=== PATIENT | male | born 1950 | race Caucasian/White ===

== ENCOUNTER 2020-11-23 09:45 | Emergency (ER) | payer MEDICARE, MEDICAID, SELFPAY ==
[2020-11-23] VITALS (9 sets, daily range): BP systolic 75–110; BP diastolic 53–80; PULSE 71–108; RESP 16–20; TEMP 36.5–36.8; O2SAT 95–99; BMI 15.7
--- NOTE | ~2020-11-23 | CT_ITS ---
EXAMINATION: HEAD AND CERVICAL SPINE CT WITHOUT CONTRAST CLINICAL INFORMATION: Fall COMPARISON: Previous head CT November 2012 TECHNIQUE: Axial images through the head and cervical spine without contrast. Sagittal and coronal reconstructions on the technologist workstation were performed. Patient dose 700+2 5 0 mg/cm. FINDINGS: Head CT: There is no evidence of an extra-axial collection. There is no evidence of intra-axial or extra-axial hemorrhage. The ventricles and extra-axial CSF spaces are prominent suggestive of generalized atrophy. There is an old right basal ganglia lacunar infarct. There is nonspecific periventricular white matter disease. No mass, mass effect or acute infarct is seen. Bony structures are unremarkable. Cervical spine CT: There is head tilt to the right. There is mild 2 to 3 mm anterior subluxation of C6 with respect to C5 C5 and C7. This may be related to facet arthritis. No fracture or dislocation is seen. There is a severe multilevel degenerative spondylosis from C3-C4 to T1-T2. There is degenerative disc disease at C7-T1 and T1-T2. There is bilateral multilevel facet arthritis. There are degenerative changes at the C1 dens articulation. Prevertebral soft tissues are normal. CT/CT cervical spine wo con IMPRESSION: Head CT: No acute findings. Generalized atrophy, nonspecific periventricular white matter disease and old right basal ganglia lacunar infarct. Cervical spine CT: Degenerative changes. No fracture or dislocation seen.
--- NOTE | ~2020-11-23 | CT_ITS ---
EXAMINATION: CT CHEST, ABDOMEN AND PELVIS WITHOUT CONTRAST CLINICAL INFORMATION: Fall. COMPARISON: None. TECHNIQUE: Axial images through the chest, abdomen and pelvis without oral or IV contrast. Sagittal and coronal reconstructions on the technologist workstation were performed. Patient dose 190+307 mGy/cm. This CT examination was performed using dose optimization techniques as appropriate, variously including the following: *Automated exposure control *Adjustment of mA and/or kV according to patient size (this includes techniques or standardized protocols for targeted exams where dose is matched to indication/reason for exam; i.e. extremities or head) *Use of iterative reconstruction technique FINDINGS: CHEST: There is evidence of emphysema. There is left lower lobe atelectasis and pneumonia. There are increased interstitial markings seen in the inferior segment of the lingula and right upper and right middle lobes. There is no pleural effusion or pneumothorax. The heart does not appear enlarged. There is coronary artery calcification. The thoracic aorta is slightly dilated. The ascending thoracic aorta measures 4.1 x 4.6 cm. There is no pericardial effusion. The descending thoracic aorta is tortuous. There are no enlarged hilar or mediastinal lymph nodes. There may be a small esophageal hernia. No chest wall mass or enlarged axillary lymph nodes are seen. There are degenerative changes of the spine. No fracture is seen. ABDOMEN AND PELVIS: The stomach is dilated and filled with food. The liver, spleen, and gallbladder are unremarkable. The pancreas is difficult to evaluate due to lack of contrast and paucity of intraperitoneal fat. The right kidney is atrophic. The left kidney is normal appearing. The adrenal glands are normal. There is a large right inguinal hernia containing the cecum and distal small bowel. There is stool throughout the colon suggestive of constipation. There is no evidence of obstruction. There is no evidence of free air. There is no ascites. The prostate gland does not appear enlarged. There is evidence of atherosclerotic disease. No aneurysm is seen. There is no adenopathy. There is scoliosis and degenerative changes of the lumbar spine. No fracture is seen. CT/CT abdomen pelvis wo con IMPRESSION: CHEST: Emphysema. Left lower lobe atelectasis and pneumonia. Dilated food-filled stomach. Possible aspiration should be considered. Dilated ascending thoracic aorta. Coronary artery calcification. ABDOMEN AND PELVIS: Large right inguinal hernia containing the cecum and distal small bowel. No evidence of obstruction. Stool throughout the colon suggestive of constipation. Atrophic right kidney.
--- NOTE | ~2020-11-23 | CT_ITS ---
EXAMINATION: HEAD AND CERVICAL SPINE CT WITHOUT CONTRAST CLINICAL INFORMATION: Fall COMPARISON: Previous head CT November 2012 TECHNIQUE: Axial images through the head and cervical spine without contrast. Sagittal and coronal reconstructions on the technologist workstation were performed. Patient dose 700+2 5 0 mg/cm. FINDINGS: Head CT: There is no evidence of an extra-axial collection. There is no evidence of intra-axial or extra-axial hemorrhage. The ventricles and extra-axial CSF spaces are prominent suggestive of generalized atrophy. There is an old right basal ganglia lacunar infarct. There is nonspecific periventricular white matter disease. No mass, mass effect or acute infarct is seen. Bony structures are unremarkable. Cervical spine CT: There is head tilt to the right. There is mild 2 to 3 mm anterior subluxation of C6 with respect to C5 C5 and C7. This may be related to facet arthritis. No fracture or dislocation is seen. There is a severe multilevel degenerative spondylosis from C3-C4 to T1-T2. There is degenerative disc disease at C7-T1 and T1-T2. There is bilateral multilevel facet arthritis. There are degenerative changes at the C1 dens articulation. Prevertebral soft tissues are normal. CT/CT head/brain wo con IMPRESSION: Head CT: No acute findings. Generalized atrophy, nonspecific periventricular white matter disease and old right basal ganglia lacunar infarct. Cervical spine CT: Degenerative changes. No fracture or dislocation seen.
--- NOTE | 2020-11-23 10:00 | ECG_ITS ---
Test Reason : FALL, KNEE PAIN Blood Pressure : / mmHG Vent. Rate : 104 BPM Atrial Rate : 104 BPM P-R Int : 152 ms QRS Dur : 096 ms QT Int : 342 ms P-R-T Axes : 086 073 066 degrees QTc Int : 449 ms Sinus tachycardia Possible Left atrial enlargement Left ventricular hypertrophy Abnormal ECG When compared with ECG of 23-DEC-2012 16:16, Criteria for Anterior infarct are no longer Present Referred By: Tati Garrett Electronically Signed By:CY VEGA MD
--- NOTE | 2020-11-23 10:01 | ED_ITS ---
HPI - Fall General Chief Complaint: Fall Stated Complaint: FALL W/RIGHT KNEE PAIN Time Seen by Provider: 11/23/20 09:59 Source: patient and EMS Mode of arrival: EMS Limitations: other (vague historian, poor cooperation) Related Data Home Medications Medication Instructions Recorded Confirmed No Known Home Meds 11/23/20 11/23/20 Allergies Allergy/AdvReac Type Severity Reaction Status Date / Time No Known Allergies Allergy Unverified 06/17/20 15:27 [No Known Allergies*] Review of Systems Review of Systems: Constitutional : No Fever, No Chills, pos fatigue, pos anorexia ENT/Mouth : No Ear Pain, No Hoarseness, No sore throat Eyes: No Eye Pain, No Swelling, No Redness, No Foreign Body Cardiovascular : No Chest Pain, No SOB Respiratory : No Cough, No Dyspnea Gastrointestinal : No Nausea, No Vomiting, No Diarrhea, No abdominal Pain Genitourinary : No Dysuria, No Hematuria Musculoskeletal : positive joint pain, No Myalgias, No Joint Swelling Skin : pos Skin lacerations, No rash Neuro : pos Weakness, No Numbness, No Loss of Consciousness, No Dizziness, No Headache Psych : pos Anxiety/Panic, No Depression Heme/Lymph: no easy bruising, no Lymphadenopathy Endocrine : No Polyuria, No Polydipsia All other systems reviewed and are negative [facility] Past Medical History Attestation statement: The following information was validated with the patient. Medical History Anxiety Asthma Borderline personality disorder Social History Social History (Updated 11/23/20 @ 10:30 by Tati Garrett DO) Alcohol intake: current Alcohol intake frequency: holidays/special occasions only Alcohol type: beer Smoking Status: Current every day smoker Smoked in Last 30 Days: Yes Use of substances other than those prescribed or required for medical reasons: No Advance Directives: No Advance Directives Information Provided: No Physical Exam Vital Signs: Vital Signs: Last Vital Signs Temp 98.2 F 11/23/20 14:59 Pulse 108 H 11/23/20 14:59 Resp 20 11/23/20 14:59 BP 98/74 11/23/20 14:59 Pulse Ox 95 11/23/20 14:59 Body Mass Index 15.7 Appearance: Alert. Oriented X3. Anxious, uncooperative, mild acute distress. Frail cachectic Eyes: Pupils equal, round and reactive to light. ENT: Pharynx normal. temporal wasting Neck: Normal inspection. Neck supple. CVS: Normal heart rate and rhythm. Pulses normal. Respiratory: No respiratory distress. Breath sounds normal. Abdomen: Soft and nontender. large R inguinal hernia no discoloration non tender noted it's been like that for a while Back: bilateral buttocks abrasions noted and superficial pressure ulcers no signs of infection, abrasion superficial no signs of infection upper thoracic spine Skin: Skin warm and dry. Normal skin color. poor skin turgor. Extremities: No lower extremity edema. No calf ttp Neuro: Oriented X 3. No motor deficit. No sensory deficit. Psych: anxious, depressed, I wish I would . Course Course Course Narrative: signed out pending BHN, PT/CM - started on augmentin for possible aspiration pneumonia, ate his entire lunch MDM - Fall MDM Narrative Medical decision making narrative: 70 yo male with FTT, depression made some SI statements but it seems due to lack of social help and possibly ETOH at this time given frailty and cachectic with falls at this time will need CT head/cspine/chest/abdomen for mass/trauma, labs, close observation sitter, he is begging for food at this time, CM involved to call sister, dispo per results and findings, abrasions noted on bilateral buttocks and thoracic spine but no signs of infection. will need possible placement vs N/CARE team consult Lab Data Result diagrams: 11/23/20 10:37 11/23/20 10:37 Labs: Lab Results 11/23/20 11/23/20 11/23/20 Range/Units 10:37 10:37 10:37 WBC 9.1 (4.8-10.8) X10*3/uL RBC 4.36 L (4.60-5.80) X10*6/uL Hgb 13.1 L (14.0-18.0) g/dl Hct 39.9 L (42-52) % MCV 91.5 (80-98) fL MCH 30.0 (27.0-33.0) pg MCHC 32.8 (31.0-36.0) g/dl RDW 15.3 (11.0-16.0) % Plt Count 343 (160-400) X10*3/uL MPV 11.3 (9.4-12.4) fL Immature Gran % (Auto) 0.4 (0.0-0.4) % Neut % (Auto) 78.8 H (45-73) % Lymph % (Auto) 12.1 L (20-40) % [place] % (Auto) 6.6 (2-11) % Eos % (Auto) 1.3 (0-4) % Baso % (Auto) 0.8 (0-2) % Lymph # (Auto) 1.1 L (1.2-4.9) X10*3/uL [place] # (Auto) 0.6 (0.1-1.2) X10*3/uL Eos # (Auto) 0.1 (0.0-0.4) X10*3/uL Baso # (Auto) 0.1 (0.0-0.2) X10*3/uL Abs Immat Gran (auto) 0.04 H (0.00-0.03) X10*3/uL Absolute Neuts (auto) 7.2 (2.0-8.3) X10*3/uL Absolute Nucleated RBC 0.000 (0.0-0.012) X10*3/uL Nucleated RBC % (auto) 0.0 (0.0-0.2) /100WBC PT (10.8-13.0) SEC INR (0.9-1.1) APTT (24.1-38.0) SEC Sodium 134 L (135-145) mmol/L Potassium 4.7 (3.3-5.1) mmol/L Chloride 94 L (96-108) mmol/L Carbon Dioxide 27 (22-29) mmol/L Anion Gap 18 (12-20) BUN 13 (9-16) mg/dL Creatinine 1.31 (0.5-1.4) mg/dL Estim Creat Clear Calc 34.0 Estimated GFR 54 Random Glucose 136 H (60-115) mg/dL Calcium 9.0 (8.4-10.2) mg/dL Magnesium 2.0 (1.6-2.6) mg/dL Total Bilirubin 1.2 H (0.0-1.0) mg/dL Direct Bilirubin 0.7 H (0.0-0.5) mg/dL AST 19 (5-37) U/L ALT 10 (0-40) U/L Alkaline Phosphatase 115 (39-117) U/L Total Creatine Kinase (38-174) U/L Total Protein 7.0 (6.5-8.0) g/dL Albumin 3.6 (3.5-5.0) g/dL Lipase (8-78) U/L Ethyl Alcohol mg/dL COVID-19 (JAYME) Negative (Negative) COVID-19 Clin Com See Note 11/23/20 11/23/20 11/23/20 Range/Units 10:37 10:37 10:37 WBC (4.8-10.8) X10*3/uL RBC (4.60-5.80) X10*6/uL Hgb (14.0-18.0) g/dl Hct (42-52) % MCV (80-98) fL MCH (27.0-33.0) pg MCHC (31.0-36.0) g/dl RDW (11.0-16.0) % Plt Count (160-400) X10*3/uL MPV (9.4-12.4) fL Immature Gran % (Auto) (0.0-0.4) % Neut % (Auto) (45-73) % Lymph % (Auto) (20-40) % [place] % (Auto) (2-11) % Eos % (Auto) (0-4) % Baso % (Auto) (0-2) % Lymph # (Auto) (1.2-4.9) X10*3/uL [place] # (Auto) (0.1-1.2) X10*3/uL Eos # (Auto) (0.0-0.4) X10*3/uL Baso # (Auto) (0.0-0.2) X10*3/uL Abs Immat Gran (auto) (0.00-0.03) X10*3/uL Absolute Neuts (auto) (2.0-8.3) X10*3/uL Absolute Nucleated RBC (0.0-0.012) X10*3/uL Nucleated RBC % (auto) (0.0-0.2) /100WBC PT 11.8 (10.8-13.0) SEC INR 1.0 (0.9-1.1) APTT 44.0 H (24.1-38.0) SEC Sodium (135-145) mmol/L Potassium (3.3-5.1) mmol/L Chloride (96-108) mmol/L Carbon Dioxide (22-29) mmol/L Anion Gap (12-20) BUN (9-16) mg/dL Creatinine (0.5-1.4) mg/dL Estim Creat Clear Calc Estimated GFR Random Glucose (60-115) mg/dL Calcium (8.4-10.2) mg/dL Magnesium (1.6-2.6) mg/dL Total Bilirubin (0.0-1.0) mg/dL Direct Bilirubin (0.0-0.5) mg/dL AST (5-37) U/L ALT (0-40) U/L Alkaline Phosphatase (39-117) U/L Total Creatine Kinase 144 (38-174) U/L Total Protein (6.5-8.0) g/dL Albumin (3.5-5.0) g/dL Lipase 9 (8-78) U/L Ethyl Alcohol < 10 mg/dL COVID-19 (JAYME) (Negative) COVID-19 Clin Com ECG Data Attestation: I personally reviewed and interpreted this ECG as follows: ECG interpretation date: 11/23/20 ECG interpretation time: 11:25 Interpretation: Rate: 104 Rhythm: sinus tachycardia [place]: normal , LVH Normal P waves. Normal PIERRE. Normal QRS complex. ST T wave : no [place] qTC: normal prior studies: no acute ischemia The study has been interpreted contemporaneously by me. . Discharge Plan Discharge Clinical Impression: Abrasion, Adult failure to thrive, Non-compliance Pneumonia Qualifiers: Pneumonia type: due to unspecified organism Laterality: unspecified laterality Lung location: unspecified part of lung Qualified Code(s): J18.9 - Pneumonia, unspecified organism Depression Qualifiers: Depression Type: unspecified Qualified Code(s): F32.9 - Major depressive disorder, single episode, unspecified Prescriptions: No Action No Known Home Meds RF: 0
[2020-11-23] MEDS: 0.9 % Sodium Chloride 1,000 ML 999 ML IVCONT (10:46)
[2020-11-23 10:48] LABS: MANUAL DIFF FLAG NO
[2020-11-23 10:53] LABS: Basophils Absolute Auto 0.1 X10*3/uL (0.0-0.2); Basophils Percent Auto 0.8 % (0-2); Eosinophils Absolute Auto 0.1 X10*3/uL (0.0-0.4); Eosinophils Percent Auto 1.3 % (0-4); Hematocrit 39.9 % (42-52); Hemoglobin 13.1 g/dl (14.0-18.0); Imm Gran Abs Auto 0.04 X10*3/uL (0.00-0.03); Imm Gran Pct Auto 0.4 % (0.0-0.4); Lymphocytes Absolute Auto 1.1 X10*3/uL (1.2-4.9); Lymphocytes Percent Auto 12.1 % (20-40); Mean Corpuscular HGB Conc 32.8 g/dl (31.0-36.0); Mean Corpuscular Volume 91.5 fL (80-98); Mean Platelet Volume 11.3 fL (9.4-12.4); Monocytes Absolute Auto 0.6 X10*3/uL (0.1-1.2); Monocytes Percent Auto 6.6 % (2-11); Neutrophils Absolute Auto 7.2 X10*3/uL (2.0-8.3); Neutrophils Percent Auto 78.8 % (45-73); Platelet Count 343 X10*3/uL (160-400); Red Blood Count 4.36 X10*6/uL (4.60-5.80); Red Cell Distribution Width 15.3 % (11.0-16.0); White Blood Count 9.1 X10*3/uL (4.8-10.8)
[2020-11-23 10:59] LABS: Prothrombin Time 11.8 SEC (10.8-13.0)
[2020-11-23 11:12] LABS: Ethanol < 10 mg/dL; Lipase 9 U/L (8-78)
[2020-11-23 11:14] LABS: Alanine Aminotransferase 10 U/L (0-40); Albumin Level 3.6 g/dL (3.5-5.0); Alkaline Phosphatase 115 U/L (39-117); Anion Gap 18 (12-20); Aspartate Amino Transferase 19 U/L (5-37); Bilirubin Direct 0.7 mg/dL (0.0-0.5); Bilirubin Total 1.2 mg/dL (0.0-1.0); Blood Urea Nitrogen 13 mg/dL (9-16); Carbon Dioxide 27 mmol/L (22-29); Chloride 94 mmol/L (96-108); Estimated Glomerular Filt Rate 54; Glucose Random 136 mg/dL (60-115); Potassium 4.7 mmol/L (3.3-5.1); Sodium 134 mmol/L (135-145)
--- NOTE | 2020-11-23 11:17 | MHC.CM.ED ---
Spoke with patient's sister, Lily via telephone at [phone]. Patient hasn't spoke to her in about 8 years. She filed a section 35 on him at that time due to alcohol abuse. He stayed 2 days and then they released him. They have 2 other sisters that Masood hasn't spoke with in over 20 years. Lily stated patient may be active with [facility]. T/W left a voicemail for Mika Simpson at [facility] via telephone at [phone]. Continue to monitor for d/c needs.
[2020-11-23 11:21] LABS: COVID-19 Test Negative (Negative); IDNOW Serial# 9DD0AD1C
--- NOTE | 2020-11-23 12:16 | MHC.CM.ED ---
Patient states he is to Bautista Hung. However he is unable to provide a telephone number for her. Unable to find Bautista Hung in [facility] records. Patient states he hasn't seen a doctor in years. His PCP was Dr Gabriel. Copy of 2017 [facility] ER visit obtained. Bautista Hung listed as his emergency contact at that time, with no telephone number available. Spoke with patient's sister Lily. Inquired if patient was to Bautista Hung. She is unsure if patient is . Continue to monitor for d/c needs.
[2020-11-23] MEDS: Piperacillin Sodium/Tazobactam 3.375 GM in 0.9 % Sodium Chloride 50 ML IV (12:51)
--- NOTE | 2020-11-23 13:43 | MHC.CM.ED ---
Received returned telephone call from Mika Hewitt of [facility]. Patient appears to have been seen by Renae of [facility] on 11/01/20. Attempted to reach Renae via telephone at [phone]. Left voicemail requesting return telephone call. Continue to monitor for d/c needs.
--- NOTE | 2020-11-23 15:26 | MHC.CM.ED ---
Received return telephone call from Rocio at [facility]. Patient was inpatient at [facility] [address] in 1988. Since that time, patient has been active with [facility] since then. [facility] had [facility] services and day programs for him. However, about 2 years ago, he refused all services from [facility]. [facility] has continued to be as involved with patient as he will allow. [facility]'s legal department have had discussions about obtaining a guardianship, but they feel it would not be appropriate because patient will still be able to refuse care, services and placement. Rocio verifies patient has a long standing history of major depressive disorder and a personality disorder with delusions. Patient's delusions include that the owns the building he lives in and that he has a name Bautista Hung. Per Rocio, Bautista was someone who did live in the apartment on the next floor up with her mother. Patient believes Bautista was his girlfriend, is now his and they are currently and that Bautista still lives in the apartment. Rocio has verified with the case managers that Bautista and her mother haven't lived in the building for years . Rocio can be reached via telephone at [phone]. [facility] eval is pending. Physical therapy eval is completed. terminal operator care is recommended. Referrals to alf facilities have been broadcasted in allscripts, in case patient is cleared by [facility]. Continue to monitor for d/c needs.
--- NOTE | 2020-11-23 17:24 | MHC.CM.ED ---
Attempted to meet with pt. Pt. sleeping. BHN consult pending. CM to follow for d/c plans.
--- NOTE | 2020-11-23 20:13 | MHC.CM.ED ---
CM met with pt. Very dishevelled in appearance. Hair and solorzano very unkept. Missing many teeth. Body odor noted. Pt denies having any sisters and states he has a family and children to care for. Pt refuses to speak about HCP and told CM she was asking too many questions. Pt denies having a doctor and says it's his right not to have one. Also denies taking any medications. One minute he tells CM he is sick and the next minute he is telling CM he will not speak to [facility] or any crisis people. Pt aware that [facility] will come in to see him, but he states he will not speak with them. When asked if he can care for himself, he stated he cares for his family and that CM again asks too many questions. For the record, pt lives alone, and has no family to care for. He does not have any children. Pt does have 3 sisters; he is estranged from 2 of them for over 20 years and another sister, Lily Person has been estranged for 8 years. ([phone]). Awaiting [facility] evaluation. Face sheet/clinicals faxed to [facility] at 1830. [facility] had not been previously faxed. CM called [facility] to obtain fax number ([phone]). CM to follow for d/c needs.
[2020-11-23] MEDS: Amoxicillin/Potassium Clav 875 MG TABLET PO (21:10)
[2020-11-23] MEDS: diphenhydrAMINE HCL 25 MG TABLET 50 MG PO (21:10)
[2020-11-24 00:30] LABS: Glucose Urine UA NEG (NEG); Leukocyte Esterase Urine NEG (NEG); Nitrite Urine NEG (NEG); Urine Blood NEG (NEG); Urine Ketones 5 MG/DL (NEG); Urine Protein TRACE MG/DL (NEG-TRACE)
[2020-11-24 00:32] LABS: Appearance Urine CLEAR; Color Urine YELLOW
--- NOTE | 2020-11-24 00:37 | MHC.CARE ---
[facility] unable to send clinician for evaluation until the morning. Crisis evaluation completed by CARE team. This process description writer reviewed pt's chart and consulted with supplier manager re: pt's current presentation, hx, and concerns. This process description writer met with pt briefly, as he was unwilling to engage in assessment, repeatedly telling this process description writer to leave, and stating you are dismissed, perlae, I fucking hate social workers. Pt did, however, respond that he was not experiencing any thoughts of or suicide. Given pt's hx and reason for today's visit, it is this process description writer's opinion that pt does not require inpt psychiatric stabilization, as pt's current state of functioning is not one which will be served during a psychiatric admission. Discharge planning and care will continue to be managed and followed by case management, with plan for psych consult to determine competency.
[2020-11-24 01:04] LABS: Amphetamine Screen Urine Not Detected (Not Detect); Barbiturates, Urine Not Detected (Not Detect); Benzodiazepines Screen Urine Not Detected (Not Detect); Cannabinoid Screen Urine Not Detected (Not Detect); Cocaine Screen Urine Not Detected (Not Detect); Opiate Screen Urine Not Detected (Not Detect); Phencyclidine Screen Urine Not Detected (Not Detect)
[2020-11-24 05:54] VITALS: BP 117/87; PULSE 84; RESP 16; O2SAT 98
--- NOTE | 2020-11-24 08:05 | MHC.CM.ED ---
Patient remains in ER. Patient was cleared by Care Team of needing inpatient psych level of Care. Consult to Gina Moran has been ordered to determine if patient has the capacity to make his own decisions. Continue to monitor for d/c needs.
[2020-11-24] MEDS: Amoxicillin/Potassium Clav 875 MG TABLET PO ×2 (09:02→22:24)
[2020-11-24 09:08] VITALS: BP 110/83; PULSE 81; RESP 16; O2SAT 98
--- NOTE | 2020-11-24 09:11 | PC.NURSE ---
pt resting quietly,he has tolerated a meal. Pt asking to smoke, explained smoking policy and offered pt patech. HE states patches are stupid and don't work and refuses. Pt also states he does not want to be here, states he should be allowed to go home. Explained pt waiting to talk to psychiatry, he states they are stupid. Pt oriented to day, date and time, would not answer suicide screening questions. He is quiet at this time. will continue to monitor
--- NOTE | 2020-11-24 10:42 | MHC.CM.ED ---
Patient seen by Gina Moran. Patient found not to have the capacity to make medical decisions. Marilin Baeza aware. Guardianship paperwork started. Continue to monitor for d/c needs.
--- NOTE | 2020-11-24 11:04 | P.CNPS_ITS ---
History of Present Illness Date of Service: 11/24/2020 Chief Complaint: FALL W/RIGHT KNEE PAIN Reason for Consult: Medical decision making capacity--specific to discharge plan Requesting physician: Anna Trimble Discussed with referring provider: Yes Sources of Information: patient interviewed and chart reviewed HPI Narrative: Patient is a 70 year old male who presented to [facility] after he called for an ambulance following a fall in his home. It is reported that conditions in patients home were very bad and included urine and feces on the floor and reports that his refrigerator was tipped over. Patient also presented as malodorous and unkempt with wounds on his buttocks. Also appearing quite thin and undernourished. Crisis evaluation was completed last evening as patient was initially reporting he wanted to . He was evaluated and cleared by social work team (please see CARE team eval). Based on patient's physical condition and collateral in regards to his current living situation, disposition recommendation was for SNF or rehab. Patient refused and stated he wanted to go home. Capacity evaluation was then requested. Patient seen in room 16 of main ED. He was awake, alert and reluctantly engaged in interview. Initially refusing to speak to this music writer, stating he hated it here and wanted to leave. Once music writer informed patient regarding reason for evaluation, he participated in interview. Patient is oriented to person, place, time and situation; though his report of what happened prior to arriving at the hospital changed several times during interview. Patient aware of current medical issue, aware of recommendations, are of risks a nd declining facility admission because he states his and family are home and will be taking care of him. Patient disputed the conditions his apartment was reportedly found in. He was tearful and stated that he doesn't have any food. Continued to refer to his several times during the interview. Collateral from notes and CM is that patient does not have a or family that lives with him and this is a long standing delusion of his. He is reported to be involved with [facility], though it is unclear of he has an open case as DM worker reported that patient stopped engaging in all services with them, his day program and [facility] about 2 years ago. No recent psychiatric admissions or crisis evaluations. Does not appear he has been engaged with primary care recently either. Review of Systems Psychiatric: Reports irritability, Denies homicidal ideation and Denies suicidal ideation PMFSH Medical History Anxiety Asthma Borderline personality disorder Diagnostics Vital Signs (24Hr): Vital Signs - 24 hr 11/23/20 11:37 11/23/20 14:17 11/23/20 14:29 Temperature 97.7 F Pulse Rate 71 71 Respiratory Rate 16 Blood Pressure 106/76 106/76 Pulse Oximetry 95 95 11/23/20 14:59 11/23/20 17:54 11/23/20 19:41 Temperature 98.2 F Pulse Rate 108 H 90 Respiratory Rate 20 17 18 Blood Pressure 98/74 89/59 L 75/53 L Pulse Oximetry 95 95 97 11/23/20 20:28 11/23/20 23:45 11/24/20 05:54 Temperature Pulse Rate 92 90 84 Respiratory Rate 18 16 16 Blood Pressure 96/68 101/71 117/87 Pulse Oximetry 99 98 98 11/24/20 09:08 Temperature Pulse Rate 81 Respiratory Rate 16 Blood Pressure 110/83 Pulse Oximetry 98 Body Mass Index 15.7 Labs Results: 11/23/20 10:37 11/23/20 10:37 Labs: Laboratory Results - last 48 hr 11/23/20 11/23/20 11/23/20 10:37 10:37 10:37 WBC 9.1 RBC 4.36 L Hgb 13.1 L Hct 39.9 L MCV 91.5 MCH 30.0 MCHC 32.8 RDW 15.3 Plt Count 343 MPV 11.3 Immature Gran % (Auto) 0.4 Neut % (Auto) 78.8 H Lymph % (Auto) 12.1 L [place] % (Auto) 6.6 Eos % (Auto) 1.3 Baso % (Auto) 0.8 Lymph # (Auto) 1.1 L [place] # (Auto) 0.6 Eos # (Auto) 0.1 Baso # (Auto) 0.1 Abs Immat Gran (auto) 0.04 H Absolute Neuts (auto) 7.2 Absolute Nucleated RBC 0.000 Nucleated RBC % (auto) 0.0 PT INR APTT Sodium 134 L Potassium 4.7 Chloride 94 L Carbon Dioxide 27 Anion Gap 18 BUN 13 Creatinine 1.31 Estim Creat Clear Calc 34.0 Estimated GFR 54 Random Glucose 136 H Calcium 9.0 Magnesium 2.0 Total Bilirubin 1.2 H Direct Bilirubin 0.7 H AST 19 ALT 10 Alkaline Phosphatase 115 Total Creatine Kinase Total Protein 7.0 Albumin 3.6 Lipase Urine Color Urine Appearance Urine pH Ur Specific [place] Urine Protein Urine Glucose (UA) Urine Ketones Urine Blood Urine Nitrite Ur Leukocyte Esterase Urine Opiates Screen Ur Barbiturates Screen Ur Phencyclidine Scrn Ur Amphetamines Screen U Benzodiazepines Scrn Urine Cocaine Screen U Marijuana (THC) Screen Ethyl Alcohol COVID-19 (JAYME) Negative COVID-19 Clin Com See Note 11/23/20 11/23/20 11/23/20 10:37 10:37 10:37 WBC RBC Hgb Hct MCV MCH MCHC RDW Plt Count MPV Immature Gran % (Auto) Neut % (Auto) Lymph % (Auto) [place] % (Auto) Eos % (Auto) Baso % (Auto) Lymph # (Auto) [place] # (Auto) Eos # (Auto) Baso # (Auto) Abs Immat Gran (auto) Absolute Neuts (auto) Absolute Nucleated RBC Nucleated RBC % (auto) PT 11.8 INR 1.0 APTT 44.0 H Sodium Potassium Chloride Carbon Dioxide Anion Gap BUN Creatinine Estim Creat Clear Calc Estimated GFR Random Glucose Calcium Magnesium Total Bilirubin Direct Bilirubin AST ALT Alkaline Phosphatase Total Creatine Kinase 144 Total Protein Albumin Lipase 9 Urine Color Urine Appearance Urine pH Ur Specific [place] Urine Protein Urine Glucose (UA) Urine Ketones Urine Blood Urine Nitrite Ur Leukocyte Esterase Urine Opiates Screen Ur Barbiturates Screen Ur Phencyclidine Scrn Ur Amphetamines Screen U Benzodiazepines Scrn Urine Cocaine Screen U Marijuana (THC) Screen Ethyl Alcohol < 10 COVID-19 (JAYME) COVID-19 Clin Com 11/24/20 11/24/20 00:01 00:01 WBC RBC Hgb Hct MCV MCH MCHC RDW Plt Count MPV Immature Gran % (Auto) Neut % (Auto) Lymph % (Auto) [place] % (Auto) Eos % (Auto) Baso % (Auto) Lymph # (Auto) [place] # (Auto) Eos # (Auto) Baso # (Auto) Abs Immat Gran (auto) Absolute Neuts (auto) Absolute Nucleated RBC Nucleated RBC % (auto) PT INR APTT Sodium Potassium Chloride Carbon Dioxide Anion Gap BUN Creatinine Estim Creat Clear Calc Estimated GFR Random Glucose Calcium Magnesium Total Bilirubin Direct Bilirubin AST ALT Alkaline Phosphatase Total Creatine Kinase Total Protein Albumin Lipase Urine Color YELLOW Urine Appearance CLEAR Urine pH 6.0 Ur Specific [place] 1.020 Urine Protein TRACE Urine Glucose (UA) NEG Urine Ketones 5 Urine Blood NEG Urine Nitrite NEG Ur Leukocyte Esterase NEG Urine Opiates Screen Not Detected Ur Barbiturates Screen Not Detected Ur Phencyclidine Scrn Not Detected Ur Amphetamines Screen Not Detected U Benzodiazepines Scrn Not Detected Urine Cocaine Screen Not Detected U Marijuana (THC) Screen Not Detected Ethyl Alcohol COVID-19 (JAYME) COVID-19 Clin Com Imaging Radiology Impressions: ITS Impressions Abdomen/Pelvis CT 11/23/20 09:59 IMPRESSION: CHEST: Emphysema. Left lower lobe atelectasis and pneumonia. Dilated food-filled stomach. Possible aspiration should be considered. Dilated ascending thoracic aorta. Coronary artery calcification. ABDOMEN AND PELVIS: Large right inguinal hernia containing the cecum and distal small bowel. No evidence of obstruction. Stool throughout the colon suggestive of constipation. Atrophic right kidney. Chest CT 11/23/20 09:59 IMPRESSION: CHEST: Emphysema. Left lower lobe atelectasis and pneumonia. Dilated food-filled stomach. Possible aspiration should be considered. Dilated ascending thoracic aorta. Coronary artery calcification. ABDOMEN AND PELVIS: Large right inguinal hernia containing the cecum and distal small bowel. No evidence of obstruction. Stool throughout the colon suggestive of constipation. Atrophic right kidney. Head CT 11/23/20 09:59 IMPRESSION: Head CT: No acute findings. Generalized atrophy, nonspecific periventricular white matter disease and old right basal ganglia lacunar infarct. Cervical spine CT: Degenerative changes. No fracture or dislocation seen. Cervical Spine CT 11/23/20 10:00 IMPRESSION: Head CT: No acute findings. Generalized atrophy, nonspecific periventricular white matter disease and old right basal ganglia lacunar infarct. Cervical spine CT: Degenerative changes. No fracture or dislocation seen. Mental Status Exam Mental Status Exam Patient Appearance: Unkempt Patient Orientation: Person, Place, Time and Situation Level of Consciousness: Awake and Alert Patient Behavior: Guarded, Swearing, Crying and Uncooperative Mood Description: Hostile and Angry Affect Description: Hostile and Angry Speech Pattern: Garbled Hallucinations: None Delusions: Present Thought Process: Rumination Thought Content: positive for [place] Judgement: Poor Medications Medications Current Medications Generic Name Dose Route Start Last Admin Trade Name Freq PRN Reason Stop Dose Admin Amoxicillin/Clavulanate Potassium 875 mg 11/23/20 21:00 11/24/20 09:02 Amoxicillin/Potassium Clav 875 Mg Tablet PO 875 mg BID MARCOS Administration Pharmacy Consult 1 each 11/23/20 09:59 Consult Rx Perform Med Rec MISCELLANE ONCE PRN Consult order Allergies Allergies Allergy/AdvReac Type Severity Reaction Status Date / Time No Known Allergies Allergy Unverified 06/17/20 15:27 [No Known Allergies*] Assessment & Plan Assessment & Plan (1) Adult failure to thrive: Status: Acute Code(s): R62.7 - Adult failure to thrive Recommendations: Based on patient interview and collateral, patient does not display capacity to make medical decisions related to discharge plan. Although he displayed an appreciation and understanding of current medical issues, his rationale for being discharged home was based on non factual information (that his was home to care for him--patient is not and does not have anyone living with him). At this time patient is not displaying capacity to make medical decisions related to discharge planning and specific request to be discharged home. Greater than 50% of the session was spent on counseling and/or coordination of c are
--- NOTE | 2020-11-24 11:27 | MHC.CM.ED ---
Received notification from [facility] that patient's [employer] comes back No [employer] benefit plan . Financial counselors notified. Continue to monitor for d/c needs.
--- NOTE | 2020-11-24 14:39 | PC.NURSE ---
pt has tolerated meals. He has been unwilling to allow staff to do any care, will not move himself in the bed and is refusing repositioning. Pt states leave me alone . Will reapproach
--- NOTE | 2020-11-24 15:08 | MHC.CM.PN ---
Guardianship paperwork has been completed and sent to [facility]. Awaiting communication back from attorneys. Adriana magazine writer also spoke [facility] worker Rocio who knows patient fairly well. She reports patient has been becoming withdraw over the past few years. He has been refusing [facility] to enter his home. She reports patient does have a rep payee that has been paying his rent. She reports that they have arranged for the home to be cleaned due to it's condition. Rocio is going to try and re-instate patient's [employer] this Sunday.
--- NOTE | 2020-11-24 15:45 | MHC.CM.ED ---
[place] at Risk filed by T/W due to self neglect. Marilin Baeza aware. Continue to monitor for d/c needs.
[2020-11-24 20:00] VITALS: BP 101/72; PULSE 97; RESP 15; O2SAT 96
--- NOTE | 2020-11-24 20:52 | PC.NURSE ---
Protective services called asking for an update on patient's status . Optical Instrument Repairer informed that case management involved and recommendation for roasterman care.
[2020-11-25 07:05] VITALS: BP 92/64; PULSE 106; RESP 16; TEMP 36.9; O2SAT 96
--- NOTE | 2020-11-25 07:14 | PC.NURSE ---
pt has a quarter sized abrasion on his back in the middle of his spine. patient denies pain from abrasion. bed of the abrasion is dry and intact, no moisture or drainage present. no odor present. foam dressing applied. pt encouraged to reposition to sides every 2 hours to prevent further skin breakdown.
--- NOTE | 2020-11-25 08:30 | MHC.CM.ED ---
Patient remains in ER. Guardianship is being pursued. Clinical updates sent to facilities still following patient: [facility], [facility], [facility], [facility], [facility], [facility], [facility] and [facility]. Continue to monitor for d/c needs.
[2020-11-25 12:26] VITALS: BP 142/101; PULSE 102; RESP 16; O2SAT 98
--- NOTE | 2020-11-25 12:35 | MHC.CM.ED ---
Received notification from Angeline in financial counseling that patient's [employer] was cancelled in 2016. He will need a new [employer] application completed. Patient has a payor traffic workforce representative through [facility]. Marilin Felisha is waiting for a return telephone call from her. Marilin will relay [facility] info and Angeline's contact info. Gina Moran will see patient to determine if any antipsychotic medications will be needed. Continue to monitor for d/c needs.
--- NOTE | 2020-11-25 13:38 | PC.NURSE ---
Masood was wet and spilled his urinal on the floor. He was cleaned, changed and transferred to recliner chair. bed linens were changed and environmental was called and is currently cleaning the floor in his room. call li given to patient in recliner. recliner wheels locked.
[2020-11-25 14:00] VITALS: BP 142/98; PULSE 98; RESP 16; O2SAT 98
--- NOTE | 2020-11-25 14:24 | PC.NURSE ---
Masood peed again and was not able to get most of it in the urinal so it went on the floor again. Pt was cleaned using wet wipes. [place] catheter applied. aware
--- NOTE | 2020-11-25 19:39 | PC.NURSE ---
PT ABLE TO SLOWLY AMBULATED ~4 FT FROM CHAIR TO BED W/ 1 PERSON ASSIST.
[2020-11-25 20:26] VITALS: BP 104/72; PULSE 90; RESP 16; TEMP 37; O2SAT 96
[2020-11-25] MEDS: Amoxicillin/Potassium Clav 875 MG TABLET PO (20:27)
[2020-11-25 23:00] VITALS: BP 102/74; PULSE 90; RESP 16; TEMP 37; O2SAT 96
[2020-11-26 07:10] VITALS: PULSE 98; RESP 16; O2SAT 96
[2020-11-26] MEDS: Amoxicillin/Potassium Clav 875 MG TABLET PO ×2 (08:22→21:18)
--- NOTE | 2020-11-26 08:57 | PC.NURSE ---
Pt is awake, alert to self, rr even, speaks in brief sentences, skin is pwdi, and he is in nad. He ate 100% of his breakfast, and offers no c/o at this time. He remains a case under case management for guardianship and subsequent snf placement.
--- NOTE | 2020-11-26 10:00 | PC.NURSE ---
Pt ate 100% of breakfast.
[2020-11-26 12:43] VITALS: BP 110/67; PULSE 87; RESP 18; O2SAT 99
--- NOTE | 2020-11-26 14:00 | PC.NURSE ---
Pt ate 100% of lunch.
--- NOTE | 2020-11-26 17:51 | PM.PSYCN ---
History of Present Illness Date of Service: 11/26/2020 Chief Complaint: FALL W/RIGHT KNEE PAIN Reason for Consult: medication Requesting physician: Kindra Vann Discussed with referring provider: Yes Sources of Information: patient interviewed, chart reviewed and crisis/core team assessment reviewed Additional Sources of Information: [facility] family preservation caseworker Rocio [phone] HPI Narrative: Pt with hx of schizoaffective versus schizophrenia who was brought to [facility] via EMS after he called due to call. Apparently his apartment is in very precarious condition, and concerned was raised due to his ability to care for himself. Pt malnourish, unkept, malodorous. He was assessment on 11/15/2020 for capacity to make medical decisions but appears to lack capacity at this time. Hospital going for guardianship. Pt today in bed, alert, in no acute distressed. He was guarded and suspicious. He stated several times that this justowriter operator was asking too many questions, I don't trust anyone. Pt reports he came here because of a fall. He reports no one is doing anything for me here. When asked about his own expectation, pt able to state that he was being given an antibiotic. However, pt unable to explain the reason for this. Pt notes that I don't feel well physically. But at the same time, he is rejecting help. He is tearful at times stating he misses his family. He talks about his mother. But when asked more specific questions about his (apparently there is no such ), he becomes very suspicious and guarded stating that was not your business, I talk with her all the time. When asked about hearing voices that other can't hear, pt states he has but he ignored them. He reports that he is not being given food here in hospital, which is not the case. We discussed medications such as antipsychotics, pt states they don't work. Pt informed that medication can be offered and he can decide to take it or not. Medical Evaluation Reviewed: Yes Review of Systems Review of Systems Constitutional : No Fever, No Chills, pos fatigue, pos anorexia ENT/Mouth : No Ear Pain, No Hoarseness, No sore throat Eyes: No Eye Pain, No Swelling, No Redness, No Foreign Body Cardiovascular : No Chest Pain, No SOB Respiratory : No Cough, No Dyspnea Gastrointestinal : No Nausea, No Vomiting, No Diarrhea, No abdominal Pain Genitourinary : No Dysuria, No Hematuria Musculoskeletal : positive joint pain, No Myalgias, No Joint Swelling Skin : pos Skin lacerations, No rash Neuro : pos Weakness, No Numbness, No Loss of Consciousness, No Dizziness, No Headache Psych : pos Anxiety/Panic, No Depression Heme/Lymph: no easy bruising, no Lymphadenopathy Endocrine : No Polyuria, No Polydipsia All other systems reviewed and are negative Psychiatric: Reports irritability, Denies homicidal ideation and Denies suicidal ideation [facility] Medical History Anxiety Asthma Borderline personality disorder Diagnostics Vital Signs (24Hr): Vital Signs - 24 hr 11/25/20 20:26 11/25/20 23:00 11/26/20 07:10 Temperature 98.6 F 98.6 F Pulse Rate 90 90 98 Respiratory Rate 16 16 16 Blood Pressure 104/72 102/74 Pulse Oximetry 96 96 96 11/26/20 12:43 Temperature Pulse Rate 87 Respiratory Rate 18 Blood Pressure 110/67 Pulse Oximetry 99 Body Mass Index 15.7 Labs Results: 11/23/20 10:37 11/23/20 10:37 Imaging Radiology Impressions: ITS Impressions Abdomen/Pelvis CT 11/23/20 09:59 IMPRESSION: CHEST: Emphysema. Left lower lobe atelectasis and pneumonia. Dilated food-filled stomach. Possible aspiration should be considered. Dilated ascending thoracic aorta. Coronary artery calcification. ABDOMEN AND PELVIS: Large right inguinal hernia containing the cecum and distal small bowel. No evidence of obstruction. Stool throughout the colon suggestive of constipation. Atrophic right kidney. Chest CT 11/23/20 09:59 IMPRESSION: CHEST: Emphysema. Left lower lobe atelectasis and pneumonia. Dilated food-filled stomach. Possible aspiration should be considered. Dilated ascending thoracic aorta. Coronary artery calcification. ABDOMEN AND PELVIS: Large right inguinal hernia containing the cecum and distal small bowel. No evidence of obstruction. Stool throughout the colon suggestive of constipation. Atrophic right kidney. Head CT 11/23/20 09:59 IMPRESSION: Head CT: No acute findings. Generalized atrophy, nonspecific periventricular white matter disease and old right basal ganglia lacunar infarct. Cervical spine CT: Degenerative changes. No fracture or dislocation seen. Cervical Spine CT 11/23/20 10:00 IMPRESSION: Head CT: No acute findings. Generalized atrophy, nonspecific periventricular white matter disease and old right basal ganglia lacunar infarct. Cervical spine CT: Degenerative changes. No fracture or dislocation seen. Mental Status Exam Mental Status Exam Patient Appearance: Unkempt Patient Orientation: Person, Place, Time and Situation Level of Consciousness: Awake and Alert Patient Behavior: Guarded, Swearing, Crying and Uncooperative Mood Description: Hostile and Angry Affect Description: Hostile and Angry Speech Pattern: Garbled Medications Medications Current Medications Generic Name Dose Route Start Last Admin Trade Name Freq PRN Reason Stop Dose Admin Amoxicillin/Clavulanate Potassium 875 mg 11/23/20 21:00 11/26/20 08:22 Amoxicillin/Potassium Clav 875 Mg Tablet PO 875 mg BID MARCOS Administration Pharmacy Consult 1 each 11/23/20 09:59 Consult Rx Perform Med Rec MISCELLANE ONCE PRN Consult order Allergies Allergies Allergy/AdvReac Type Severity Reaction Status Date / Time No Known Allergies Allergy Unverified 06/17/20 15:27 [No Known Allergies*] Assessment & Plan Assessment & Plan (1) Adult failure to thrive: Status: Acute Code(s): R62.7 - Adult failure to thrive Recommendations: 1. Pt deemed as not having capacity to make medical decisions at this time. 2. Start risperidone 0.5mg po BID, pt understands that medication will be offered. Greater than 50% of the session was spent on counseling and/or coordination of care
[2020-11-26 18:19] VITALS: BP 95/71; PULSE 96; RESP 18; O2SAT 98
--- NOTE | 2020-11-26 18:36 | PC.NURSE ---
When asked if he wants to get oob into a chair, pt declines, stating he just wants to be left alone and that he misses his family.
--- NOTE | 2020-11-26 19:20 | MHC.CM.ED ---
Pt remains cooperative. Continues to be incontinent of urine. Eating well. Guardianship pending. Medicaid pending. Referrals pending. Cm to follow for d/c needs.
[2020-11-26] MEDS: risperiDONE 0.5 MG TABLET PO (21:18)
[2020-11-27] VITALS: BP 172/100; PULSE 86; RESP 22; O2SAT 99
--- NOTE | 2020-11-27 01:51 | PC.NURSE ---
PT HAD 3 CONSECUTIVE EPISODES OF VOMITING COPIOUS AMOUNTS. PT STATES I THREW UP EVERYTHING I ATE ALL DAY PT ADMITS TO NAUSEA NOW. COLLECTIONS ATTORNEY ORDERED IV, NS, LABS, & CT SCAN W/CONTRAST. RN X 2 & COLLECTIONS ATTORNEY DISCUSSED THIS PLAN W/PT WHO IS REFUSING ALL OF THAT CARE AT THIS TIME. PT STATES HE DOES NOT WANT THAT DONE, AND HE WILL NOT ALLOW US TO VIOLATE HIS RIGHT THIS RN WILL RECHECK WITH PT AT A LATER TO TO SEE IF HE WILL CONSENT.
--- NOTE | 2020-11-27 07:31 | PC.NURSE ---
pt refused blood work 0731 11/27/2020
--- NOTE | 2020-11-27 07:35 | PC.NURSE ---
eating crackers and milk, denies nausea
--- NOTE | 2020-11-27 09:14 | PC.NURSE ---
refused bp and meds, was sleeping and easily woken, spo2 was 95 hr 93, rr 18
[2020-11-27 09:15] VITALS: PULSE 93; RESP 18; O2SAT 95
--- NOTE | 2020-11-27 09:49 | PC.NURSE ---
fabien arthur to bedside to discuss care, pt initially agreeable to taking zofran prior to breakfast but later refused all meds and bloodwork, now eating breakfast
--- NOTE | 2020-11-27 10:51 | MHC.CM.ED ---
Patient remains in ER. Guardianship is pending. Patient vomited last night. He is refusing an IV, labs and vitals. Due to being unable to tolerate PO antibiotics, patient would qualify for inpatient, even though he is refusing. Marilin Baeza of case management was consulted. She stated patient should be admitted. Amparo Juarez aware. Continue to monitor for d/c needs.
--- NOTE | 2020-11-27 14:16 | PC.NURSE ---
Late entry: Pt given food tray at approximately 1245 and he expressed his dissatisfaction with the food items, staff and the hospital as a whole. This RN apologized for any inconvenience and asked if there was anything if there was anything I could assist with. Pt provided with additional milk, orange juice and bread per his request. While RN at bedside pt made mention of being for 32 years and often referenced the kids as he stated their sleeping right now . Pt is alert without obvious s/s of distress noted. Pt continues to refuse blood work, vitals signs and/or any interventions by our team. the pt has his call li within reach, television on and urinals present on side table next to bed. Rn will continue to monitor.
--- NOTE | 2020-11-27 15:54 | PC.NURSE ---
Received male patient alert and responsive. interventional care re visited. Patient continues to refuse vitals and labs. Patient in no distress.
--- NOTE | 2020-11-27 19:26 | PC.NURSE ---
Pt reports dissatisfaction with milk from dinner tray. Pt states the milk wasn't even cold . When provided a new milk carton from fridge, patient then refused stating there's nothing to this milk, it's fat free. I want whole milk . Pt given whole milk and warm blanket. Pt refusing all other care from this RN. Will continue to monitor.
[2020-11-27 20:55] VITALS: RESP 16
[2020-11-27 22:00] VITALS: RESP 16
--- NOTE | 2020-11-27 23:14 | PC.NURSE ---
Pt sleeping at this time, previously used urinal to void. Linens dry at this time. Respirations even/unlabored. Will continue to monitor.
[2020-11-28] MEDS: ondansetron HCL 4 MG/2 ML VIAL IVPUSH ×2 (05:30→20:17)
[2020-11-28 06:00] VITALS: RESP 16
[2020-11-28] MEDS: risperiDONE 0.5 MG TABLET PO ×2 (09:01→20:18)
[2020-11-28] MEDS: Amoxicillin/Potassium Clav 875 MG TABLET PO ×2 (09:01→20:33)
[2020-11-28 09:08] VITALS: BP 103/73; PULSE 88; RESP 16; O2SAT 98
--- NOTE | 2020-11-28 09:09 | PC.NURSE ---
Pt on hospital bed on left side, awakes easily. easily agitated and guarded. Agreeable but reluctant with care. Able to change linen and reposition pt, sat up for breakfast and ate 100%, accepted AM meds without incident. Agreeable to vital signs and WNL. Stage 2 noted to spine and new dsg applied, pt encouraged to position self frequently. B/L buttocks noted with stage 1, left open to air. Pt denies SI or HI when asked. Noted to talk to self frequently when no one in room, non sensical at times. When asked about internal stimuli pt states I refuse . Aware of plan for case management/rehab placement and states I asked to go to rehab Watching tv at this time
--- NOTE | 2020-11-28 09:16 | PC.NURSE ---
Pt denies lab work again today. Denies nausea, no acute vomiting at this time
--- NOTE | 2020-11-28 09:21 | MHC.CM.ED ---
Patient remains in ER. Guardianship is still pending for LTC placement. [facility] application also needs to be completed by patient's payor rep. Continue to monitor for d/c needs.
[2020-11-28 16:10] VITALS: BP 98/70; PULSE 93; RESP 16; O2SAT 98
--- NOTE | 2020-11-28 16:12 | PC.NURSE ---
pt continues to refuse blood draw throughout the day. 100% of lunch eaten, with additional pudding and sandwich. vs wnl. alert, oriented x3, speaking in clear fulll sentences. resp even, nonlaboured.
--- NOTE | 2020-11-28 20:33 | PC.NURSE ---
MEDICATED PER EMR WITH NO ISSUE. PT C/O NAUSEA, ABD DISCOMFORT. MADE REPEATED REQUESTS TO STAND AND AMBULATE WITH WALKER, BUT REFUSED WHEN OFFERED
[2020-11-29 06:00] VITALS: RESP 16
[2020-11-29] MEDS: Amoxicillin/Potassium Clav 875 MG TABLET PO ×2 (08:16→21:58)
[2020-11-29] MEDS: risperiDONE 0.5 MG TABLET PO ×2 (08:16→21:58)
[2020-11-29 08:22] VITALS: BP 111/77; RESP 18
[2020-11-29 18:34] VITALS: BP 99/66; PULSE 88; O2SAT 97
[2020-11-29 20:00] VITALS: BP 102/54; PULSE 93; RESP 15; O2SAT 96
--- NOTE | 2020-11-30 04:53 | PC.NURSE ---
Patient's Iv d/c'd tonight. Patient awake and gotten up and and walk over to chair with staff assistance. Patient states that he can't walk. Patient is able to stand and states he uses a walker..
[2020-11-30 06:00] VITALS: BP 96/66; PULSE 90; RESP 16; O2SAT 97
--- NOTE | 2020-11-30 07:17 | PC.NURSE ---
Pt eating breakfast at this time. Denies any complaints. Respirations even/unlabored bilaterally. Pt appears to be in no distress. Will continue to monitor.
[2020-11-30] MEDS: Amoxicillin/Potassium Clav 875 MG TABLET PO (08:57)
[2020-11-30] MEDS: risperiDONE 0.5 MG TABLET PO (08:57)
--- NOTE | 2020-11-30 10:12 | MHC.CM.ED ---
Patient remains in ER. [facility] is in the process of obtaining guardianship for patient. Info for Holder Orders has already been sent. Waiting for a court date. Rocio [facility] worker/payee rep, is in the process of working on [employer] application today. Continue to monitor for d/c needs.
--- NOTE | 2020-11-30 10:12 | MHC.CM.PN ---
Patient's Rep Payee contact information: Umm Lopez [address] [place] [address] ext [phone] email: [email or web address]
[2020-11-30 14:00] VITALS: RESP 16
[2020-11-30 20:05] VITALS: BP 104/75; PULSE 83; RESP 14; TEMP 36.4; O2SAT 98
[2020-11-30 23:29] VITALS: BP 96/62; PULSE 91; RESP 17; TEMP 36.4; O2SAT 96
[2020-12-01 05:37] VITALS: BP 98/60; PULSE 86; RESP 16; O2SAT 96
--- NOTE | 2020-12-01 07:10 | PC.NURSE ---
this rn went into pt's room, urine is all over the floor on the pt's left side of bed (computer). this rn introduced herself to the pt and wrote her name on the board, then pt begin to state i do not want you as my nurse . this rn in a calm, quiet and respectable voice states ok, is there a reason that you do not want me as your nurse . pt states, i just don't want you as my nurse. i don't like people and i am not taking any meds today either . this rn states, ok, i will let the charge nurse know, but in the meantime i will clean up the urine that is on the floor . this rn spoke with the rating officer clinical coordinator (vivi) and informed her of the dialogue between this rn and pt.
--- NOTE | 2020-12-01 07:45 | PC.NURSE ---
pt refused to have housekeeping disinfect the floor after it was cleaned up by this rn.
--- NOTE | 2020-12-01 07:46 | PC.NURSE ---
PT REFUSED VITALS, NAD, WATCHING TV, BREAKFAST BROUGHT TO BEDSIDE
[2020-12-01 08:00] VITALS: RESP 16
--- NOTE | 2020-12-01 08:00 | PC.NURSE ---
PT ATE 100% OF BREAKFAST.
--- NOTE | 2020-12-01 09:42 | MHC.CM.ED ---
Patient remains in ER. Guardianship and [employer] pending. Continue to monitor for d/c needs.
--- NOTE | 2020-12-01 11:30 | PC.NURSE ---
pt refused to answer any questions on/from the [facility] chart. pt states i refuse to answer and questions, leave me alone .
[2020-12-01 13:33] VITALS: RESP 14
--- NOTE | 2020-12-01 13:33 | PC.NURSE ---
PT ATE 100% OF LUNCH.
--- NOTE | 2020-12-01 15:11 | MHC.CM.ED ---
Received telephone call from Marilin of [employer]. Marilin updated that we are still in the process of pursuing a [facility]. Marilin requested patient call her. Patient offered phone and telephone number. Patient is not interested in speaking to Marilin at this time. T/W left a voicemail for Marilin stating as such at [phone] ext [phone]. Continue to monitor for d/c needs.
[2020-12-02 02:41] VITALS: RESP 16
--- NOTE | 2020-12-02 07:57 | PC.NURSE ---
report taken from deangelo gamino pt here for cm, in process of obtaining guardianship of pt d/t pt safety needs. pt given breakfast ate 100%. appears to be polite, c+c w this rn. refusing to have vital signs taken. bedside urinals emptied for pt. denies any c/o att. wctm for dc needs.
[2020-12-02 07:58] VITALS: RESP 16
--- NOTE | 2020-12-02 09:08 | PC.NURSE ---
this rn in to ask pt if he interested in his morning medications today, pt sts no more medicine, im not interested . pt calm and cooperative, resting in bed att. encouraged pt to frequently reposition q2 hrs d/t skin integrity issues.
--- NOTE | 2020-12-02 12:34 | MHC.CM.ED ---
Patient remains in ER. Guardianship is being pursued. Rocio, payor rep, is in the process of reinstating patient's [facility]. Clinical updates sent via Allscripts to the facilities that are still following patient: [facility], [facility], [facility], [facility], [facility], [facility], [facility] and [facility]. Continue to monitor for d/c needs.
--- NOTE | 2020-12-02 12:57 | PC.NURSE ---
pt given lunch, ate 100%. pt expressing how much he likes pie, pie procured for pt. pt very appreciative to this rn, appears calm and cooperative. dev.
--- NOTE | 2020-12-02 19:00 | PC.NURSE ---
ASSUMED CARE OF PT. PT RESTING COMFORTABLY IN HOSPITAL BED. VS OBTAINED. PT DENIES COMPLAINTS. WILL CONTINUE TO MONITOR PT.
--- NOTE | 2020-12-02 23:35 | PC.NURSE ---
PT RESTING IN STRETHER REQUESTING FOOD. PT GIVEN SANDWICH AND DRINK. PT DENIES ANY OTHER COMPLAINTS. PT REMAINS ALERT, RESPIRATIONS EASY, N/L. SKIN W/D.
[2020-12-03] MEDS: risperiDONE 0.5 MG TABLET PO (00:12)
[2020-12-03 00:54] VITALS: BP 104/75; PULSE 83; O2SAT 98
--- NOTE | 2020-12-03 02:13 | PC.NURSE ---
PT SLEEPING AT THIS TIME. CHEST WALL MOVING UP AND DOWN WITH EASY RESPIRATIONS. WILL CONTINUE TO MONITOR PT.
--- NOTE | 2020-12-03 02:52 | PC.NURSE ---
PT GOT UP AND URINATED ALL OVER THE FLOOR. PT CLEANED UP AND REDIRECTED TO URINATE IN URINAL. PT APOLOGIZED ABOUT INCIDENT AND BACK TO BED W/O DIFFICULTY. WILL CONTINUE TO MONITOR PT.
--- NOTE | 2020-12-03 04:06 | PC.NURSE ---
PT SLEEPING, RESPIRATIONS EASY, N/L. SKIN W/D.
--- NOTE | 2020-12-03 06:54 | PC.NURSE ---
PT SLEEPING, WAKES TO VERBAL STIMULI, RESPIRATIONS EASY, N/L. SKIN W/D. REPORT GIVEN TO THOMAS BURT.
--- NOTE | 2020-12-03 07:40 | PC.NURSE ---
pt set up with his breakfast juan david.
--- NOTE | 2020-12-03 09:24 | PC.NURSE ---
pt refused his risperdone, pt requested that this rn leave his room, refused vs as well, pt states that the food in the hospital is not the greatest and is tired of eating the same thing over and over.
--- NOTE | 2020-12-03 12:59 | PC.NURSE ---
patient alert/oriented to baseline, patient on bedpan had large bm, call li within reach, will continue to monitor.
[2020-12-03 14:30] VITALS: RESP 17
--- NOTE | 2020-12-03 14:30 | PC.NURSE ---
patient sleeping, rr 17
--- NOTE | 2020-12-03 17:30 | PC.NURSE ---
patient awake/watching tv, pt stated the food in this facility is just horrible and I have eaten in mess halls that taste better than the grub I get here. patient denied any pain or discomfort. will continue to monitor.
--- NOTE | 2020-12-03 19:25 | PC.NURSE ---
patient stated I am a grump today, just leave me alone , patient offers no complaints at this time, will continue to monitor.
--- NOTE | 2020-12-03 20:00 | PC.NURSE ---
Patient refusing vital signs and being verbally abusive to staff. Patient has been refusing medication and all interventions today per staff
[2020-12-03 22:00] VITALS: RESP 18
--- NOTE | 2020-12-03 22:11 | PC.NURSE ---
patient awake/alert, refusing vitals, pt refusing medication as well, pt stated I am in a bad mood, get out of here, just go this nurse reminded the patient to ring if he would like anything, will continue to monitor.
[2020-12-03 23:28] VITALS: BP 118/81; PULSE 95; RESP 18
--- NOTE | 2020-12-04 00:21 | PC.NURSE ---
patient refusing care, refusing bed linen changed or ADLs. patient reported just wanting to be left alone. resting quietly no distress noted.
[2020-12-04 03:47] VITALS: BP 100/71; PULSE 82; RESP 18; O2SAT 96
[2020-12-04 07:35] VITALS: BP 103/69; PULSE 83; RESP 16; O2SAT 96
[2020-12-04] MEDS: risperiDONE 0.5 MG TABLET PO ×2 (08:06→21:01)
--- NOTE | 2020-12-04 09:21 | PC.NURSE ---
Pt is awake, alert, rr even speaks in full sentences. He has three areas of compromised skin integrity, on his buttocks bilaterally and his mid upper back area. Allevyn dressings applied to areas of breakdown, and pt being repositioned every 2 hrs. He ate 100% breakfast, was assisted with morning ADL's, and took morning meds without issue. Per case management,guardianship pursuit remains in effect. Will continue to monitor.
[2020-12-04 15:53] VITALS: BP 102/71; PULSE 83; RESP 16; O2SAT 97
[2020-12-04 21:01] VITALS: BP 103/66; PULSE 111; RESP 18; TEMP 36.9; O2SAT 95
--- NOTE | 2020-12-05 05:51 | PC.NURSE ---
pt resting in bed, daisha care completed and complete bed change.
[2020-12-05 07:58] VITALS: BP 127/72; PULSE 88; RESP 14; TEMP 36.9; O2SAT 96
[2020-12-05] MEDS: risperiDONE 0.5 MG TABLET PO (08:50)
[2020-12-05 20:58] VITALS: RESP 16
--- NOTE | 2020-12-06 07:06 | PC.NURSE ---
Pt sitting up for breakfast. Pt slightly irritated and refusing vital signs a this time. Respirations even and unlabored.
[2020-12-06 08:23] VITALS: RESP 16
--- NOTE | 2020-12-06 09:09 | PC.NURSE ---
Pt refused medication at this time.
[2020-12-06 11:10] VITALS: BP 101/73; PULSE 93; RESP 18; O2SAT 97
--- NOTE | 2020-12-06 11:15 | PC.NURSE ---
pt rang the li, states that he will let this rn takes his blood pressure, but continuos to refuse his resiperdone- states it does not help me. is allowing this rn to brush the pt's hair
--- NOTE | 2020-12-06 12:16 | MHC.CM.ED ---
Patient remains in ER. Guardianship is being pursued. Patient's [employer] worker, Rocio is pursuing reinstating [facility]. Continue to monitor for d/c needs.
--- NOTE | 2020-12-06 13:43 | PC.NURSE ---
Pt sitting up eating lunch, 100% eaten. PT has even and unlabored respirations.
--- NOTE | 2020-12-06 18:00 | PC.NURSE ---
pt is currently eating dinner, in no apparent distress at this time, in pretty good spirt at this time
[2020-12-06 18:10] VITALS: BP 115/82; PULSE 100; RESP 16; TEMP 36.6; O2SAT 99
[2020-12-06 22:00] VITALS: RESP 16
[2020-12-07 08:46] VITALS: BP 101/69; PULSE 82; RESP 18; TEMP 37; O2SAT 97
--- NOTE | 2020-12-07 09:08 | PC.NURSE ---
patient awake, calm, talking with RN. vitals updated. patient refused to take morning med.
--- NOTE | 2020-12-07 10:59 | PC.NURSE ---
PT REFUSING TO GET UP TO TOILET. PT MADE BOWEL MOVEMENT IN BEDPAN, PT CLEANED AND BARRIER CREAM APPLIED TO BUTTOCKS.
--- NOTE | 2020-12-07 12:11 | MHC.CM.ED ---
Patient remains in ER. Received notification from Project Asst [place] office that Project Asst Papa Viveros was appointed as patient's social services counselor. He will most likely come to the hospital and meet with staff. Continue to monitor for d/c needs.
--- NOTE | 2020-12-07 15:24 | MHC.CM.ED ---
Call Managertammy Viveros has been appointed as Masood's career placement services counselor for the guardianship hearing. Call Managercindy Viveros came to the ER today to meet with patient. Lisa and Jose J/Hanna sat with Call Managercindy Viveros to help provide some background info. Case Management contact information provided to Call Managercindy Viveros. Continue to monitor for d/c needs.
--- NOTE | 2020-12-07 15:43 | MHC.CM.ED ---
Patient's guardianship hearing has been scheduled for 12/17/20 at 9am via Zoom. Patient was handed notice by T/W. Continue to monitor for d/c needs.
[2020-12-07 15:55] VITALS: RESP 18
[2020-12-07 22:00] VITALS: BP 105/63; PULSE 87; RESP 16; O2SAT 96
[2020-12-08 06:00] VITALS: BP 102/75; PULSE 82; RESP 15; O2SAT 96
--- NOTE | 2020-12-08 07:52 | PC.NURSE ---
Pt sleeping at this time. Plan remains a guardianship establishment prior to placing pt. Will continue to monitor.
[2020-12-08] MEDS: risperiDONE 0.5 MG TABLET PO ×2 (08:23→22:18)
--- NOTE | 2020-12-08 08:28 | PC.NURSE ---
Pt is awake, alert, rr even, speaks in full sentences. Pt ate 100% of breakfast, and took morning meds without issue this morning.
[2020-12-08 13:54] VITALS: BP 95/61; PULSE 80; RESP 16; O2SAT 97
[2020-12-08 22:04] VITALS: PULSE 92; RESP 20; TEMP 37.3; O2SAT 98
[2020-12-09 05:15] VITALS: BP 97/72; PULSE 81; RESP 16; O2SAT 97
[2020-12-09 06:00] VITALS: RESP 16
--- NOTE | 2020-12-09 07:32 | PC.NURSE ---
report taken from lora gamino pt sitting in bed, very upset about breakfast foods, sts he does not want this shit . wctm for dc needs.
--- NOTE | 2020-12-09 10:33 | PC.NURSE ---
pt appears to be sleeping in bed at this time, rr even/unlabored wctm.
--- NOTE | 2020-12-09 11:14 | MHC.CM.ED ---
Patient remains in ER. Guardianship is still pending. Court hearing is scheduled for 12/17. [employer] is still not active. Continue to monitor for d/c needs.
--- NOTE | 2020-12-09 12:58 | PC.NURSE ---
Pt unhappy w/ lunch selection, given other options, kitchen called for requested cheeseburger. Pt slightly agitated, I'm going to christa this place...all you people suck . Pt sitting on edge of bed, appears to be in no apparent distress, rr even and unlabored.
--- NOTE | 2020-12-09 13:55 | PC.NURSE ---
Pt ate 100% of lunch, requested to be left alone and have the lights turned off. Now resting in bed.
--- NOTE | 2020-12-09 15:36 | PC.NURSE ---
Pt agreeable to bed linen change, declining/refusing new hospital gown/ hygiene care, and vs. Pt appears to be in no apparent distress, rr even and unlabored, skin w/p/d. Requested and given coffee.
[2020-12-09 15:41] VITALS: RESP 18
[2020-12-09 17:37] VITALS: RESP 18
--- NOTE | 2020-12-09 21:35 | PC.NURSE ---
Pt refusing medication, vs, and other interventions. states I dont want anything..leave me alone . No distress noted.
[2020-12-09 21:36] VITALS: RESP 16
--- NOTE | 2020-12-09 23:09 | MHC.CM.ED ---
CM met with pt as he was heard yelling in his bed. Pt tells CM he is not alright and he needs to leave this place. CM listened to patient. Then asked if pt was hungry. Provided sandwich and milk. Pt seems pacifier with this. Awaiting guardianship and referral acceptances. CM to follow for d/c needs.
[2020-12-10 06:00] VITALS: RESP 16
--- NOTE | 2020-12-10 06:18 | PC.NURSE ---
pt awake watching tv refused vitals at 0600 and again with pct. pt rr even and reg, needs met at bedside, pt repositions self.
[2020-12-10 07:30] VITALS: RESP 16
--- NOTE | 2020-12-10 07:30 | PC.NURSE ---
pt adamantly refused to have his vitals taken this morning. pt currently sitting comfortably in bed. pt does not appear in distress at this time. respirations even and non-labored. aware
--- NOTE | 2020-12-10 07:57 | PC.NURSE ---
pt refused breakfast this morning. requested/given a peanut butter and jelly sandwich which he ate 100%
--- NOTE | 2020-12-10 08:37 | MHC.CM.ED ---
Patient remains in ER. Guardianship court date is scheduled for 12/17. [employer] is still not active at this time. Continue to monitor for d/c needs.
--- NOTE | 2020-12-10 09:58 | PC.NURSE ---
pt adamantly refused morning meds and once again refused to let this nurse take his vitals at this time. no distress noted at this time. pt resting comfortably in bed. aware.
--- NOTE | 2020-12-10 10:24 | PC.NURSE ---
pt was incontinent of stool. he was given a complete bed bath by this nurse and paedodontist (Nicole) and moved to recliner chair. bed linens changed. pt has no questions or concerns at this time. call li in reach.
--- NOTE | 2020-12-10 11:20 | PC.NURSE ---
pt a/o x 3 no sob/carlo noted skin pink warm dry speaks in full sentence. pt is sitting up in recliner chair. pt refused to order lunch, stating that he does not want anything to eat at this time. aware.
[2020-12-10 14:00] VITALS: RESP 16
--- NOTE | 2020-12-10 15:16 | MHC.CM.ED ---
Received fax from Rocio, patient's [employer] worker. There are 2 pieces of paper patient needs to sign. Lisa attempted to get patient to sign. Patient refusing to sign. Rocio aware. Marilin Baeza aware. Continue to monitor for d/c needs.
--- NOTE | 2020-12-10 15:33 | MHC.CM.ED ---
Paperwork faxed to CM from Rocio FLETCHER at [facility] for Masood Hung to sign for the [employer]na. Explained to pt what form was and this would help CM to find a place for him to live. Pt states I do not trust any of you people and I am not signing anything. I want my language asst to look at it . Explained that I could contact his appointed language asst Ppaa Viveros and pt responded I don't mean him. He is not my language asst . I explained that the court appointed him to represent you and again Masood refused him. Pt tells me to get a phone book and look in the front cover, his language asst is there. CM replied that I could not go to his house to check his phone book. Masood was very exasperated that CM did not understand him and told me to get any phone book and look in the cover and there is my language asst . Marilin Baeza aware of above conversation. Rocio Ring aware of Masood's refusal to sign. CM will continue to follow for d/c needs.
[2020-12-10 22:00] VITALS: RESP 18
[2020-12-11 06:00] VITALS: RESP 16
--- NOTE | 2020-12-11 09:25 | PC.NURSE ---
Pt refusing VS and morning dose of Risperidone. Hygiene offered but pt refused at this time as well.
--- NOTE | 2020-12-11 12:12 | PC.NURSE ---
PT SLEEPING ON HIS SIDE, REPOSITIONS SELF. RESP EVEN NONLABOURED.
--- NOTE | 2020-12-11 14:30 | PC.NURSE ---
PER GENEVIEVE DELGADO, PT CONSUMED ENTIRETY OF HIS LUNCH TODAY, CONTINUING TO REFUSE VS.
--- NOTE | 2020-12-11 21:07 | PC.NURSE ---
PT CALM THROUGHOUT THE DAY. ENCOURAGED AMBULATION, PT REFUSED. ATTEMPTED TO ACQUIRE VS, PATIENT REFUSED. KITCHEN DID NOT DELIVER DINNER TRAYS TO ED THIS EVENING, PT ATE 2 PB&JS, A SLICE OF CAKE, SOME POTATO CHIPS, 3 WHOLE MILKS. PT WAS OFFERED CHANGE OF BED LINEN AND BED BATH, MULTIPLE ATTEMPTS, PT REFUSED ALL CARE.
--- NOTE | 2020-12-12 07:27 | PC.NURSE ---
pt is awake and alert. ORO, refuses all care. Refuses breakfast. Currently watching television in no acute distress.
--- NOTE | 2020-12-12 09:38 | PC.NURSE ---
pt agreed to eat some peanut butter toast and vanilla pudding. refused 9a meds. Refused am care. will continue to monitor.
--- NOTE | 2020-12-12 11:30 | PC.NURSE ---
patient requested some pudding and crackers, we also ordered lunch, rr 18, will continue to monitor.
[2020-12-12 14:00] VITALS: RESP 18
--- NOTE | 2020-12-12 15:24 | PC.NURSE ---
patient stating this place sucks, I just want to get out of here pt refusing to allow vitals, he is a&o to his baseline, rr 18, will continue to monitor
--- NOTE | 2020-12-12 21:24 | PC.NURSE ---
PT AWAKE AND ALERT, REQUESTING MORE FOOD AND COMPLAINING I DON'T LIKE THIS HOSPITAL ANYMORE AND I CAN'T EAT THE FOOD, IM SICK OF EVERYTHING . PT GIVEN A SANDWICH AND CRACKER TO EAT. PT IN NAD AND AWAITING FOR FURTHER ORDERS. WILL CONTINUE TO MONITOR PT.
[2020-12-12 22:00] VITALS: BP 125/84; PULSE 85; RESP 16; O2SAT 97
[2020-12-12] MEDS: risperiDONE 0.5 MG TABLET PO (22:02)
--- NOTE | 2020-12-13 02:30 | PC.NURSE ---
PT NAUSEATED AND VOMITED X 1 IN HOSPITAL BED. PT CLEANED UP WITH FRESH LINENS TO BED. PT STATES I FEEL BETTER . PT REMAINS ALERT, RESPIRATIONS EASY, N/L. PT FOLLOWING SIMPLE COMMANDS AND CALM AND COOPERATIVE IN ROOM. PT REQUESTING CRACKERS AND RHIANNON NAHID. PT DENIES ANY OTHER COMPLAINTS. VS OBTAINED.
[2020-12-13 02:37] VITALS: BP 125/87; PULSE 86; RESP 16; O2SAT 98
--- NOTE | 2020-12-13 03:26 | PC.NURSE ---
PT SITTING UP IN HOSPITAL BED WATCHING TV. PT EATING JELLO AND COMPLAINING ABOUT STAYING IN THE HOSPITAL. PT AWAKE, RESPIRATIONS EASY, N/L. SKIN W/D. WILL CONTINUE TO MONITOR PT,
[2020-12-13 05:20] VITALS: PULSE 86; RESP 16; O2SAT 98
--- NOTE | 2020-12-13 05:30 | PC.NURSE ---
PT SLEEPING, WAKES TO VOICE. PT DENIES ANY COMPLAINTS. WILL CONTINUE TO MONITOR PT.
--- NOTE | 2020-12-13 07:00 | PC.NURSE ---
report taken from tahmina rn pt l side lying in stretcher, rr even/unlabored. appears to be sleeping at this time. breakfast tray at bedside. wctm for dc needs.
[2020-12-13] MEDS: risperiDONE 0.5 MG TABLET PO ×2 (09:14→22:00)
[2020-12-13 09:30] VITALS: RESP 18
--- NOTE | 2020-12-13 10:38 | MHC.CM.ED ---
Patient remains in ER. Guardianship hearing is scheduled for December 17 at 9am. Continue to monitor for d/c needs.
--- NOTE | 2020-12-13 11:07 | PC.NURSE ---
pt requests milk and saltines. very polite w this rn. resting in hospital bed, appears comfortable. dev.
[2020-12-13 17:47] VITALS: BP 113/63; PULSE 94; O2SAT 96
[2020-12-14 06:00] VITALS: BP 94/73; PULSE 101; RESP 15; TEMP 37; O2SAT 96
--- NOTE | 2020-12-14 13:30 | MHC.CM.ED ---
Patient remains in ER. Guardianship hearing is scheduled for 12/17. Continue to monitor for d/c needs.
--- NOTE | 2020-12-14 18:37 | PC.NURSE ---
pt continues to refuse linen change. pt requesting to leave over and over. pt educated and told this rn to get out!
--- NOTE | 2020-12-14 20:49 | PC.NURSE ---
attempted adls x 2. pt offered food po inake and smoothie pt refused.
[2020-12-14 22:00] VITALS: RESP 16
--- NOTE | 2020-12-14 22:40 | PC.NURSE ---
pt refuses bed change/adls/tolieting/ food and water. pt stated I want to leave.
[2020-12-15 06:00] VITALS: RESP 15
--- NOTE | 2020-12-15 08:30 | PC.NURSE ---
Patient alert, responsive. Respirations even/unlabored bilaterally. Pt refusing Vital signs and medication at this time. Pt verbalized that he would not eat the breakfast tray he recieved because he doesn't like eggs. Called kitchen for a new tray of pancakes. will continue to monitor.
--- NOTE | 2020-12-15 09:15 | MHC.CM.ED ---
Patient remains in ER. Guardianship hearing is scheduled for 12/17. Continue to monitor for d/c needs.
--- NOTE | 2020-12-15 13:05 | P.EN_ITS ---
Event Note Date of Service: 12/15/20 Event Note: Psychiatry Note: Patient seen in ED and chart reviewed. Patient awaiting guardianship hearing later this week. Per documentation, patient has been consistently refusing his medications and at times refusing care. During interview with this telegraphic typewriter mechanic patient was pleasant and engaged in interview. Oriented to person, place and situation. Reporting that he would like to go to the rehab place to help get strength in my leg , asked about [employer] application and having rep payee apply for medicad to which patient became extremely upset stating I don't want [facility] in my life! My kids and my can take care of things for me! . (patient does not have a or children) Patient then appeared to become tearful stating he has been talking to his the whole three months I've been here . While patient is suspicious and often irritable, he has remained in behavioral control while in ED. No medication changes at this time--pending court hearing
[2020-12-15] MEDS: risperiDONE 0.5 MG TABLET PO (21:12)
--- NOTE | 2020-12-15 21:13 | PC.NURSE ---
Medicated per MAR, pt resting in bed watching TV in NAD.
[2020-12-16 00:20] VITALS: BP 98/67; PULSE 93; RESP 16; O2SAT 96
[2020-12-16 07:00] VITALS: RESP 18
--- NOTE | 2020-12-16 07:01 | PC.NURSE ---
Report received from Aurea GUZMAN. Patient is sitting up in bed eating breakfast independently. Urinal at bedside. Call li within reach. Denies any needs at this time. Denies pain. Skin PWD. Awaiting SNF placement. Guardianship hearing is scheduled for today.
--- NOTE | 2020-12-16 07:51 | MHC.CM.ED ---
Patient remains in ER. Guardianship hearing scheduled for 12/17/20 at 9am. Clinical updates sent via Allscripts to all facilities following patient: [facility], [facility], [facility], [facility], [facility], [facility]. Continue to monitor for d/c needs.
--- NOTE | 2020-12-16 08:48 | PC.NURSE ---
Patient asleep at this time. Respirations regular and even. Skin PWD.
--- NOTE | 2020-12-16 09:17 | MHC.CM.ED ---
Patient remains in ER. Met with patient to provide court documents about guardianship. Patient not interesting in speaking with T/W. Paperwork left at bedside. Continue to monitor for d/c needs.
[2020-12-16] MEDS: risperiDONE 0.5 MG TABLET PO (09:30)
[2020-12-16 09:44] VITALS: BP 111/71; PULSE 89; RESP 16; O2SAT 97
--- NOTE | 2020-12-16 10:51 | PC.NURSE ---
Patient continues to rest on stretcher, remains comfortable, and denies any needs at this time. Calm and cooperative. Respirations regular and even. Skin PWD. Call li in reach. Will continue to monitor.
--- NOTE | 2020-12-16 14:29 | PC.NURSE ---
PT CALM & COOPERATIVE THIS AM. RESP EVEN AND NONLABOURED. MEALS ORDERED.
--- NOTE | 2020-12-16 15:29 | PC.NURSE ---
pt refused lunch, given sandwich and jello
[2020-12-17] VITALS: RESP 16
[2020-12-17 06:00] VITALS: RESP 16
--- NOTE | 2020-12-17 09:33 | PC.NURSE ---
nad, watching tv, alert, speech clear, ate breakfast
--- NOTE | 2020-12-17 13:32 | MHC.CM.ED ---
Patient's temporary guardianship was approved. His guardian is Josephine [employer]. She can be reached via telephone at [phone]. T/W spoke with Renay. [employer] signature pages sent to her via email at [email or web address]. She will sign and return them. When they're returned, they will be forwarded to Rocio, patient's [facility] payor rep. Continue to monitor for d/c needs.
--- NOTE | 2020-12-17 17:55 | MHC.CM.ED ---
Temporary guardianship forms and [employer] forms uploaded into [employer] and faxed to [facility]-Rocio Duran fax ([phone]). CM continues to follow for d/c needs.
[2020-12-17 18:50] VITALS: BP 99/78; PULSE 88; RESP 16; O2SAT 95
--- NOTE | 2020-12-17 18:51 | PC.NURSE ---
guardianship acquired today by sister. bed search has started for pt.
--- NOTE | 2020-12-17 21:12 | PC.NURSE ---
LINENS CHANGED, PT GIVEN BED BATH, DRESSING CHANGED ON HIS BACK. MID BACK DECUB, REDDENED, VERY SUPERFICIAL. CLEANED, COVERED IN ANTIBIOTIC OINTMENT. SOME EARLY DECUB ON BILAT BUTTOCKS. BARRIER CREAM APPLIED. ENCOURAGED TO TRANSFER OOB, PT REFUSED.
[2020-12-18 06:00] VITALS: BP 98/80; PULSE 82; RESP 16; O2SAT 95
--- NOTE | 2020-12-18 07:37 | PC.NURSE ---
Breakfast at bedside. Pt sleeping at this time.
[2020-12-18 08:51] VITALS: BP 110/76; PULSE 82; RESP 18; O2SAT 97
--- NOTE | 2020-12-18 09:18 | PC.NURSE ---
Pt refusing am care, morning medication, and breakfast.
[2020-12-18 14:09] VITALS: PULSE 87; RESP 16; O2SAT 99
--- NOTE | 2020-12-18 14:09 | PC.NURSE ---
Pt ate approx. 80% of lunch.
--- NOTE | 2020-12-18 19:54 | PC.NURSE ---
pt watching tv, pudding given to pt. pt is calm and cooperative at this time. no s/s of distress.
[2020-12-18 22:00] VITALS: RESP 16
[2020-12-19 05:58] VITALS: BP 99/68; PULSE 77; RESP 16; O2SAT 98
--- NOTE | 2020-12-19 06:29 | PC.NURSE ---
pt has been sleeping thur the night. pt voids in the urinal with no assistance. Since pt woke up he has been holding a conversation in his room and nobody is there.
[2020-12-19 08:41] VITALS: BP 95/68; PULSE 89; RESP 16; TEMP 36.8; O2SAT 99
[2020-12-19 10:30] VITALS: RESP 16
--- NOTE | 2020-12-19 12:59 | PC.NURSE ---
pt ate 100% of lunch
[2020-12-19 14:24] VITALS: BP 101/65; PULSE 79; RESP 16; TEMP 37.1; O2SAT 97
--- NOTE | 2020-12-19 14:25 | PC.NURSE ---
pt c/o 03/10 abd pain/disc stating that his last bm was 3-4 days ago. mlp (shahla) aware.
[2020-12-19] MEDS: Docusate Sodium 100 MG CAPSULE PO (14:36)
[2020-12-19] MEDS: Milk of Magnesia 30 ML ORAL.SUSP PO (14:36)
--- NOTE | 2020-12-19 20:53 | PC.NURSE ---
PT HAD LARGE FORMED BM W/OUT DIFFICULTY. PT RESTING COMFORTABLY IN BED, GIVEN BED BATH. PT OFFERS NO COMPLAINTS ATT, AWAITING DISPO.
[2020-12-19] MEDS: risperiDONE 0.5 MG TABLET PO (21:52)
[2020-12-19 21:53] VITALS: BP 108/82; PULSE 97; RESP 18; TEMP 36.9; O2SAT 98
[2020-12-19 23:26] VITALS: BP 108/77; PULSE 95; RESP 16; TEMP 36.4; O2SAT 98
--- NOTE | 2020-12-20 10:17 | PC.NURSE ---
AWAKE, VOIDED 1100ML, REFUSED MORNING MED, BREAKFAST AT BEDSIDE BUT DECLINED
--- NOTE | 2020-12-20 10:30 | MHC.CM.ED ---
i spoke jasper vela this morning, her snf preferences for patient are : [facility], [facility] [place] and [facility] - refs for all of these have been made. i also spoke c [facility] contact - matteo shah; the two signed pages of the [email or web address] dionna. were emailed to her this morning per her request as the faxed version was too difficult to read. today she will be either faxing or mailing the application into [employer]. it is hopeful that [employer] will process the application and the patient will have a snf payor source in place in the very near future. cm to cont. to follow.
--- NOTE | 2020-12-20 14:32 | PC.NURSE ---
ate lunch, pleasant , nad
--- NOTE | 2020-12-20 16:30 | PC.NURSE ---
Resting comfortably on stretcher with eyes closed. Calm and cooperative, no distress at this time
[2020-12-20 18:09] VITALS: BP 103/70; PULSE 88; RESP 18; O2SAT 96
--- NOTE | 2020-12-20 23:19 | PC.NURSE ---
Report received. PT is resting quietly in bed. Calm and cooperative. Case management is working to find placement.
--- NOTE | 2020-12-21 00:10 | PC.NURSE ---
PT complaining of nausea. PT offered PO zofran but refused medication.
--- NOTE | 2020-12-21 08:52 | PC.NURSE ---
Pt alert, c/o abd discomfort and reports vomiting last night, none noted this morning. Abd is non distended, right inguinal hernia unchanged. Anna VICTOR aware, plan for milk of mag and zofran however pt declines states i dont trust that chyna Pt educated on meds offered without change.
[2020-12-21 09:10] VITALS: BP 120/86; PULSE 81; RESP 16; O2SAT 94
--- NOTE | 2020-12-21 10:46 | PC.NURSE ---
Pt sleeping at this time, no acute vomiting noted
--- NOTE | 2020-12-21 11:02 | MHC.CM.ED ---
Patient remains in ER. Per previous outpatient case manager note, guardians SNF choices are: 1)[facility] 2)[facility] and 3) [facility]. All 3 facilities are owned by the same company. Clinical info faxed to alondra Cook as requested. Continue to monitor for d/c needs.
--- NOTE | 2020-12-21 11:31 | PC.NURSE ---
patient awake/alert, watching tv, when this nurse went in to obtain lunch order patient stated he had nausea, this nurse offered to speak to the provider to get the patient medication for nausea and the patient refused, pt stated I dont want the crap food in this place, and I dont want any medicine, get out and leave me alone this nurse told the patient that if he needs anything to just ring and we will assist, pt stated again just get out and leave me alone
[2020-12-21 14:00] VITALS: RESP 17
--- NOTE | 2020-12-21 14:53 | PC.NURSE ---
patient a&o, watching tv, pt refusing vitals, rr wnl, will continue to monitor.
--- NOTE | 2020-12-21 17:29 | PC.NURSE ---
patient a&o watching tv, pt continuously tells this nurse to leave his room, pt has continuously refused food today, no c/o pain or discomfort, refused vitals, will continue to monitor.
--- NOTE | 2020-12-21 20:37 | PC.NURSE ---
patient rang to use bedpan, assisted patient onto bedpan per his request, while in the room pt stated I am not taking that medication tonight so don't even bother and also stated I want out of here, this place sucks , will have tech attempt to get vitals later, will continue to monitor.
[2020-12-21 21:13] VITALS: BP 101/65; PULSE 70; RESP 14; TEMP 36.6; O2SAT 96
--- NOTE | 2020-12-22 03:00 | PC.NURSE ---
patient is self positioning in the bed, patient refuses vital signs.
--- NOTE | 2020-12-22 03:20 | PC.NURSE ---
patient is sleeping at this time, self positioning in the bed.Call li within reach
--- NOTE | 2020-12-22 06:46 | PC.NURSE ---
patient refuses to let this RN check his vital signs, warm blanket was given.
[2020-12-22 07:01] VITALS: RESP 15
--- NOTE | 2020-12-22 11:12 | MHC.CM.ED ---
Spoke with Joyce of [facility]. [facility] doesn't have a bed at this time. She will check with Antonio and Larry. Joyce requesting another physical therapy eval. Spoke with physical therapy via [facility]. Per Gloria, she will attempt to see him today. Joyce will perform an asset search. Patient will need an exemption letter from [facility]. [employer] screen completed and faxed with clinical information to [facility]. Continue to monitor for d/c needs.
[2020-12-22 11:57] VITALS: BP 101/65; PULSE 70; O2SAT 96
--- NOTE | 2020-12-22 13:11 | MHC.CM.ED ---
Spoke with Joyce of [facility]. They will be able to offer a bed tomorrow (12/23), once the PASRR letter has been obtained. Spoke with Emilia at [facility]. Letter will not be available before 12/23. Left voicemail for patient's guardian Renay Swan via telephone at [phone] explainging discharge plan. Continue to monitor for d/c needs.
[2020-12-22 15:45] VITALS: BP 108/75; PULSE 72; RESP 16; TEMP 35.9; O2SAT 95
--- NOTE | 2020-12-22 16:34 | PC.NURSE ---
patient cooperative with staff today, although refused meds. vitals updated. given toast with peanut butter and pudding to eat. plan is for patient to be dc tomorrow.
--- NOTE | 2020-12-22 21:16 | PC.NURSE ---
PT RESTING IN BED WATCHING TV. USED BEDPAN FOR BM. A/O X 3 RESPONDS TO [facility]. PLAN OF CARE FOR PT TO BE TRANSFERRED TOMORROW.
[2020-12-22 21:58] VITALS: BP 103/74; PULSE 63; RESP 16; TEMP 36.6; O2SAT 98
[2020-12-23 03:14] VITALS: BP 119/81; PULSE 66; RESP 16; TEMP 36.4; O2SAT 99
[2020-12-23 05:26] VITALS: BP 95/69; PULSE 70; RESP 16; TEMP 37; O2SAT 95
--- NOTE | 2020-12-23 07:06 | PC.NURSE ---
patient up eating breakfast
[2020-12-23] MEDS: risperiDONE 0.5 MG TABLET PO (09:05)
--- NOTE | 2020-12-23 10:46 | MHC.CM.ED ---
Exemption letter obtained from [facility] [employer]. Patient can leave for [facility] at 1130am. [facility] booked. Med nec with chart. Patient, guardian Renay, sister Lily, Brian EXPERIMENTAL ASSEMBLER and Brent GUZMAN aware. Continue to monitor for d/c needs.
== END 2020-12-23 11:54 | disposition skilled nursing facility (03) ==
PROVIDERS: Emergency Provider Emergency Medicine
DX: S20.412A Abrasion of left back wall of thorax, initial encounter (principal); S20.411A Abrasion of right back wall of thorax, initial encounter; S30.810A Abrasion of lower back and pelvis, initial encounter; M25.561 Pain in right knee; R27.9 Unspecified lack of coordination; R45.851 Suicidal ideations; F33.1 Major depressive disorder, recurrent, moderate; F17.200 Nicotine dependence, unspecified, uncomplicated; Z20.822 Contact with and (suspected) exposure to COVID-19; W01.0XXA Fall on same level from slipping, tripping and stumbling without subsequent striking against object, initial encounter; Y93.9 Activity, unspecified; Y92.9 Unspecified place or not applicable; Y99.9 Unspecified external cause status; Z71.6 Tobacco abuse counseling; Z79.899 Other long term (current) drug therapy
CPT/HCPCS: 36415; 70450; 71250; 72125; 74176; 80048; 80076; 80307; 80320; 81003; 82550; 83690; 83735; 85025; 85610; 85730; 87635; 93005; 96365; 96376; 97161; 97162; 99283; 99284; 99285; J2405; J2543; Q0163